=== PATIENT | female | born 1960 | race Caucasian/White ===

== ENCOUNTER → 2020-08-27 10:07 | Outpatient (CLI) | payer OTHER, SELFPAY ==
[2020-08-27 15:37] LABS: COVID19 -Nasal RAPID Negative (Negative)
== END ==
PROVIDERS: Visit Provider Student in an Organized Health Care Education/Training Program
DX: Z01.812 Encounter for preprocedural laboratory examination (principal); Z20.822 Contact with and (suspected) exposure to COVID-19
CPT/HCPCS: 87635

== ENCOUNTER 2020-08-29 09:53 | Day surgery (SDC) | payer OTHER, SELFPAY ==
[2020-08-29] VITALS (7 sets, daily range): BP systolic 122–147; BP diastolic 78–92; PULSE 70–83; RESP 13–18; TEMP 36.3–36.7; O2SAT 95–99; BMI 32.5
--- NOTE | 2020-08-29 | PATH_ITS ---
[facility] Accession Number: [id number] . 01 Material submitted: . PART A: duodenum - DUODENAL PART B: gastrointestinal site - GASTRIC . 02 Diagnosis: A. Duodenum, Biopsy: Duodenal mucosa with no diagnostic abnormality. Negative for active inflammation, features of sprue, dysplasia, or malignancy. . B. Stomach, Biopsy: Antral and body-type mucosa with mild chronic gastritis. Negative for Helicobacter by immunohistochemistry. Negative for intestinal metaplasia. Negative for dysplasia and malignancy. [facility] 09/04/2020 1334 Local . 02 Electronically signed: . Catalina Bynum MD, Pathologist NPI- [id number] . 01 Gross description: . A. Specimen A is received in formalin labeled duodenal and consists of a 0.4 x 0.3 x 0.2 cm puri-pink fragment of soft tissue, which is entirely submitted in cassette A1. B. Specimen B is received in formalin labeled gastric and consists of four puri fragments of soft tissue, measuring 0.6 x 0.5 x 0.2 cm in aggregate. The specimen is entirely submitted in cassette B1. ([id number]) /[facility] 08/30/2020 1637 Local . 02 Microscopic: . B. An immunohistochemical stain was performed to evaluate for Helicobacter organisms and is negative. The control stain showed appropriate reactivity. . * This test was developed and its performance characteristics determined by [employer]. It has not been cleared or approved by the U.S. Food and Drug Administration. The FDA has determined that such clearance or approval is not necessary. This test is used for clinical purposes. It should not be regarded as investigational or for research. . 02 Pathologist provided ICD-10: R10.9, R14.0, R14.1 . 02 CPT . 934395, 982412, M46519 Performed at: 01 [facility] [address] [id number] MD Bryan Park MD Phone: [phone] Performed at: [facility] [address] [place], [place] [id number] MD Catalina Bynum MD Phone: [phone]
[2020-08-29] MEDS: SODIUM CHLORIDE 0.9% 1,000 ML 84 ML IV (10:40)
--- NOTE | 2020-08-29 11:38 | PM.HP.1 ---
History of Present Illness History of Present Illness Date Patient Seen: 08/29/20 Chief complaint: EGD W/BX Narrative: Abdominal pain and bloating unresponsive to medications Patient History Family & Social History Social History: household members family Tobacco & Substance use: Smoking Status Never smoker alcohol intake current alcohol intake frequency a few times a month Substance Use Type does not use Meds Home Medications and Allergies Home Medications Medication Instructions Recorded Confirmed Type levothyroxine [Synthroid] 75 mcg PO DAILY 08/29/20 08/29/20 History Allergies Allergy/AdvReac Type Severity Reaction Status Date / Time azithromycin [From Zithromax] Allergy Intermediate Diarrhea Verified 08/29/20 10:18 Sulfa (Sulfonamide Allergy Intermediate Hives Verified 08/29/20 10:18 Antibiotics) Exam Vital Signs (past 8 hours): - 08/29/20 10:20 Temperature 97.9 F Pulse Rate 79 Respiratory Rate 16 Blood Pressure 147/92 H Pulse Oximetry 99 Oxygen Delivery Method Room Air Narrative Exam Narrative: Oropharynx free of lesions Chest clear to auscultation percussion Cardiac exam reveals no S3 or murmur Assessment & Plan Assessment & Plan narrative: Abdominal pain and bloating unresponsive to medications. Risks, benefits, alternatives have been explained
--- NOTE | 2020-08-29 11:40 | PM.OP.ENDO ---
Operative Date/Time/Diagnoses Date of procedure: 08/29/20 Pre-op diagnosis: See indication and findings Procedure & Clinicians Study performed: EGD Same procedure as scheduled: Yes Indications: Abdominal discomfort and bloating Surgeon: Jesus Manuel Geronimo Procedure Notes Procedure in detail: After informed consent was obtained the patient was placed in left lateral decubitus position. The video upper scope was placed into the oropharynx and with the patient's help swallowed into the esophagus. Esophagus stomach and duodenum were carefully examined. On withdrawal retroflexed view the GE junction was performed. The scope was removed. The patient tolerated procedure well. Blood loss none Complications none Sedation Total sedation time 10 minutes Versed 5 mg fentanyl 100 micro g IV titration Findings 1. Grade D esophagitis with near circumferential ulceration at the GE junction. 2. 5 cm hiatal hernia from 35-40 cm. 3. Pre-pyloric gastric erythema and multiple small to medium gastric polyps in the gastric body. Biopsies taken of both in the same bottle. 4. Normal pylorus 5. Normal duodenal bulb and sweep biopsies taken to rule out celiac Will follow up on biopsies for her but in the meantime she should be on a proton pump inhibitor. I will send in pantoprazole 40 mg daily for to take to her pharmacy.
[2020-08-29] MEDS: fentaNYL 250 MCG/5 ML INJ IV (11:44)
[2020-08-29] MEDS: MIDAZOLAM 5 MG/5 ML VIAL IV (11:45)
--- NOTE | 2020-08-29 12:54 | SUR.PHASEII ---
1245-Pt up and ambulating gait steady, taking po fluids without problems, iv dcd and site clear, pt given all dc instructions and verbalizes understanding and has appt for virtual appt. Pt dcd via wc in stable condition by kel Ingram. Pt in good spirits.
== END 2020-08-29 12:45 | disposition home or self-care (01) ==
PROVIDERS: PCP Registered Nurse; Referring Provider Internal Medicine Gastroenterology; Visit Provider Internal Medicine Gastroenterology
PROC: 0DJ08ZZ Inspection of Upper Intestinal Tract, Via Natural or Artificial Opening Endoscopic (ICD-10-PCS; CPT 43235; principal; 2020-08-29 11:30)
DX: K20.90 Esophagitis, unspecified without bleeding (principal); K29.50 Unspecified chronic gastritis without bleeding; K44.9 Diaphragmatic hernia without obstruction or gangrene
CPT/HCPCS: 43239; J2250; J3010

== ENCOUNTER → 2021-01-01 12:20 | Outpatient (CLI) | payer OTHER, SELFPAY ==
[2021-01-01 13:08] LABS: COVID19 -Nasal RAPID Negative (Negative)
== END ==
PROVIDERS: PCP Registered Nurse; Visit Provider Physician Assistant
DX: Z01.812 Encounter for preprocedural laboratory examination (principal); Z20.822 Contact with and (suspected) exposure to COVID-19
CPT/HCPCS: 87635

== ENCOUNTER 2021-01-02 07:14 | Day surgery (SDC) | payer OTHER, SELFPAY ==
--- NOTE | 2021-01-02 | PATH_ITS ---
[facility] Accession Number: [id number] . 01 Material submitted: . PART A: gastrointestinal site - GASTRIC POLYPS PART B: esophagus - DISTAL ESOPHAGUS . 02 Diagnosis: A. Stomach, Polyps, Biopsies: Fundic gland polyps. No evidence of Helicobacter organisms on H/E stain. Negative for intestinal metaplasia. Negative for dysplasia and malignancy. . B. Distal Esophagus, Biopsy: Squamocolumnar junctional mucosa with mild active inflammation. Negative for intestinal metaplasia. Negative for dysplasia and malignancy. [facility] 01/04/2021 1118 Local . 02 Electronically signed: . Catalina Bynum MD, Pathologist NPI- [id number] . 01 Gross description: . Part A: GASTRIC POLYPS: Received in formalin are 2 fragment(s) of puri, soft tissue measuring 0.4 x 0.3 x 0.3 cm to 0.2 x 0.2 x 0.1 cm submitted entirely in 1 cassette(s) Part B: DISTAL ESOPHAGUS: Received in formalin are 2 fragment(s) of puri, soft tissue measuring 0.3 x 0.2 x 0.1 cm to 0.2 x 0.2 x 0.1 cm submitted entirely in 1 cassette(s) /[facility] 01/03/2021 0427 Local . 02 Pathologist provided ICD-10: K20.90 . 02 CPT . 045557, 153360 Performed at: 01 [facility] [address], [place], [place] [id number] MD Bryan Park MD Phone: [phone] Performed at: 02 [facility] [address] [place], [place] [id number] MD Catalina Bynum MD Phone: [phone]
[2021-01-02] MEDS: SODIUM CHLORIDE 0.9% 1,000 ML 100 ML IV (07:35)
[2021-01-02 07:36] VITALS: BP 137/83; PULSE 88; RESP 12; TEMP 36.3; O2SAT 99; BMI 33.5
--- NOTE | 2021-01-02 07:51 | PM.HP.1 ---
History of Present Illness History of Present Illness Date Patient Seen: 01/02/21 Time Patient Seen: 07:51 Chief complaint: EGD W/DX K20.9 ESOPHAGITIS Narrative: Doing very well at this time. She is on pantoprazole once daily. No dysphagia asymptomatic. Patient History Comment: I reviewed the note by Dr. Manav MORRIS ER from earlier this spring. No changes. Patient has a history of depression anxiety hypothyroidism hypothyroidism and a LEEP procedure. Family & Social History Social History: household members family Tobacco & Substance use: Smoking Status Never smoker alcohol intake current alcohol intake frequency holiday/special occasion Substance Use Type does not use Meds Home Medications and Allergies Home Medications Medication Instructions Recorded Confirmed Type levothyroxine 75 mcg tablet 75 mcg PO DAILY 08/29/20 01/02/21 History (Synthroid) pantoprazole 40 mg tablet,delayed 40 mg PO DAILY 01/02/21 01/02/21 History release Allergies Allergy/AdvReac Type Severity Reaction Status Date / Time azithromycin [From Zithromax] Allergy Intermediate Diarrhea Verified 01/02/21 07:24 Sulfa (Sulfonamide Allergy Intermediate Hives Verified 01/02/21 07:24 Antibiotics) Review of Systems Review of Systems ROS: Yes All systems reviewed with the patient and are negative except as otherwise documented Exam Vital Signs (past 8 hours): - 01/02/21 07:36 Temperature 97.3 F L Pulse Rate 88 Respiratory Rate 12 Blood Pressure 137/83 Pulse Oximetry 99 Oxygen Delivery Method Room Air Const General: cooperative and comfortable Orientation: alert HENMT Head: normocephalic Ears: external ears normal Nose: external nose normal Face and sinus: normal facial exam Mouth: oral mucosae normal Eyes General: appearance normal, both eyes and all related structures Neck Neck: normal visual inspection Chest Chest: normal inspection of the chest Resp Effort & Inspection: normal respiratory effort Auscultation: clear to auscultation bilaterally Cardio Rate: regular rate Rhythm: regular rhythm Heart Sounds: no murmurs GI Inspection: normal to inspection Palpation: soft and No tender Auscultation: normal bowel sounds Skin General: no rashes or lesions noted and No jaundice Neuro General: patient alert and moves all extremities Cognition: normal cognition Speech: speech normal Extrem General: no pedal edema Psych Appearance: grossly normal Assessment & Plan Assessment & Plan narrative: This is a 60-year-old female with LA grade D erosive esophagitis. She is doing well on proton pump inhibitor once daily. Repeat EGD is planned for today to assess for healing of the esophagus and exclude the presence of Street's. Time Spent With Patient Critical Care time: I spent a total of [] minutes of critical care time on this patient's care today; this time is exclusive of procedural time.
--- NOTE | 2021-01-02 07:53 | PM.PREOP ---
Pre-operative Note COVID-19 COVID-19 status: Negative Result date/Date tested (Pos, Neg/Pending): 01/01/21 Interval Note History & Physical reviewed/Exam performed by Physician: Yes Changes to H&P: No H&P completed within 30 days and has changed as indicated here:: Today ASA Class (for procedural sedation): II
--- NOTE | 2021-01-02 07:54 | PM.PREOP ---
Pre-operative Note COVID-19 COVID-19 status: Negative Result date/Date tested (Pos, Neg/Pending): 01/01/21
--- NOTE | 2021-01-02 08:46 | PM.OP.ENDO ---
Operative Date/Time/Diagnoses Date of procedure: 01/02/21 Time of procedure: 08:46 Pre-op diagnosis: LA grade D erosive esophagitis Post-op diagnosis: other Procedure & Clinicians Study performed: Esophagogastroduodenoscopy with biopsies Same procedure as scheduled: Yes Indications: LA grade D erosive esophagitis Surgeon: Braxton Lopez Procedure Notes SCOAP/Timeout: Done Procedure in detail: After the risks and benefits were explained, written and verbal informed consent was obtained. The patient was brought into the procedure room and placed into the left lateral decubitus position. See nurse playground equipment erector notes The scope was introduced into the mouth through the bite block and advanced under direct visualization to the 2nd portion of the duodenum. The scope was slowly withdrawn carefully examining the mucosa for any defects or lesions. Retroflexed views were accomplished in the stomach. The stomach was decompressed, the scope was then removed from the patient who tolerated the procedure well. Scope withdrawal time: n/a Sedation minutes: 15 Complications: none Impression: 1. Duodenum: This was visually unremarkable from the bulb through to the 2nd portion. 2. Stomach: There was some mild streaky erythema in the antrum and several benign diminutive polyps throughout the body and fundus. Couple of these polyps were sampled for histopathologic analysis. Otherwise retroflexed views of the LES were unremarkable with the exception of a small sliding hiatal hernia 3. Esophagus: The squamocolumnar junction did appear to extend very subtly up into the tubular esophagus eg from the GE junction. GEJ was at approximately 36 cm from the incisors. There was a small hiatal hernia. If this is indeed Street's it would be rated as C 0 M 0.5. There was no evidence of any active esophagitis at this time. Endoscopic diagnosis 1. Small hiatal hernia 2. Possible C 0 M 0.5 Street's 3. Healed esophagitis 4. Gastric polyps 5. Gastropathy Post-procedure Plan for aftercare: 1. Await histopathology 2. Continue pantoprazole once daily 3. If Street's is confirmed, repeat EGD in 12 months. Disposition: PACU
[2021-01-02 08:53] VITALS: BP 135/78; PULSE 89; RESP 20; TEMP 36.3; O2SAT 93
[2021-01-02 08:57] VITALS: BP 138/82; PULSE 90; RESP 12; O2SAT 95
[2021-01-02 09:02] VITALS: BP 147/84; PULSE 89; RESP 97; TEMP 36.3; O2SAT 15
[2021-01-02 09:07] VITALS: BP 147/84; PULSE 86; RESP 15; O2SAT 97
[2021-01-02 09:13] VITALS: BP 141/78; PULSE 80; RESP 15; TEMP 36.3; O2SAT 97
--- NOTE | 2021-01-02 14:03 | SUR.PHASEII ---
pt up in wheelchair at 0920 ready for discharge waiting for ride. Discharged at 0935
== END 2021-01-02 09:45 | disposition home or self-care (01) ==
PROVIDERS: PCP Registered Nurse; Referring Provider Internal Medicine Gastroenterology; Visit Provider Internal Medicine Gastroenterology
PROC: 0DJ08ZZ Inspection of Upper Intestinal Tract, Via Natural or Artificial Opening Endoscopic (ICD-10-PCS; CPT 43235; principal; 2021-01-02 08:30)
DX: K20.90 Esophagitis, unspecified without bleeding (principal); E03.9 Hypothyroidism, unspecified; F41.9 Anxiety disorder, unspecified; F32.9 Major depressive disorder, single episode, unspecified; K44.9 Diaphragmatic hernia without obstruction or gangrene; K31.7 Polyp of stomach and duodenum; K31.9 Disease of stomach and duodenum, unspecified
CPT/HCPCS: 43239